=== PATIENT | female | born 2005 | race Caucasian/White ===

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

== ENCOUNTER 2025-07-16 19:45 | Emergency (ER) | payer BC, SELFPAY ==
--- OUTSIDE RECORDS SUMMARY | 2025-03-04 11:30 | XMS_ITS ---
Author Organization [facility] ([address]) Address [address] [place] [address] Care Team Providers Care Senior Loss Control Specialist Name Role Phone Sabiha Faria Primary Care Provider Sandra Frias Unavailable [phone] Angela Poe [phone] REASON FOR VISIT Hives follow-up Social History Sex Assigned At : Social History Observation Description Sex Assigned At Female Encounters Encounter Location Date Provider Diagnosis [facility] [address] [place] [address] 03/04/2025 Angela Poe Plan Of Treatment No Information Progress Notes * Emelia VENEGAS [birth year]OB:[birth year] (20 yo F)Acc No.[id number]:03/04/2025 Progress Notes Patient: El DIALLOEmelia HANSEN Provider: SHON Oliva :2005 A ge:20 Y S ex:Female Date:03/04/2025 [address] [id number] Pcp:Sabiha Faria Subjective: * Chief Complaints: * 1 . Hives follow-up. * Medical History: Objective: * Vitals: Assessment: Plan: * Treatment: * Billing Information: * Visit Code: * Procedure Codes: * Electronic signature of Angela Poe DNP, FNP-C on 07/16/2025 at 07:48 PM MEDICAL DONATION PROFESSIONAL Sign off status: Pending * Provider: El Poe DNP STAFFING ASSOCIATE-C Date: 0 03/04/2025 Generated for Osorio argueta/Vicky/Rupal on: 1 09/16/2024 07:48 PM MEDICAL DONATION PROFESSIONAL
--- NOTE | ~2025-07-16 | CT_ITS ---
CTA chest PE protocol HISTORY:cp/sob, COVID+, hx PE . COMPARISON: None. TECHNIQUE: Following the noncontrasted produce production team member, axial images of the thorax were obtained following infusion of 100 cc of Isovue 370. Post-processing on an independent workstation was performed to reconstruct MIP images for evaluation of the thoracic vasculature. FINDINGS: There is no pulmonary embolism, aortic dissection, thoracic aneurysm or pericardial fluid. The lung parenchyma is clear. No pleural effusion or pneumothorax is noted. There is no axillary, mediastinal or hilar adenopathy. Limited evaluation of the upper abdomen demonstrates no gross abnormalities. Review of bone windows demonstrates no osteoblastic or lytic lesions. IMPRESSION: There is no pulmonary embolism, aortic dissection, pericardial fluid or thoracic aneurysm. No acute lung findings. All CT scans at this facility are performed using low dose modulation techniques as appropriate to perform exam including the following: automated exposure control; use of iterative reconstruction technique; adjustment of the mA and/or kV according to patient size (this includes techniques or standardized protocols for targeted exams where dose is matched to indication/reason for exam). Reviewed, dictated and finalized at location [facility]. [employer] IMPRESSION: There is no pulmonary embolism, aortic dissection, pericardial fluid or thoraci c aneurysm. No acute lung findings. All CT scans at this facility are performed using low dose modulation techniqu es as appropriate to perform exam including the following: automated exposure c ontrol; use of iterative reconstruction technique; adjustment of the mA and/or kV according to patient size (this includes techniques or standardized protocol s for targeted exams where dose is matched to indication/reason for exam).
--- NOTE | ~2025-07-16 | XR_ITS ---
XR chest 2V HOSTORY: chest pain COMPARISON:[ None] FINDINGS: Frontal and lateral views of the chest were obtained. The lungs are clear. The heart size is normal in size. Pulmonary vasculature is unremarkable. Osseous structures are intact. IMPRESSION: No acute lung findings.] [ ] Reviewed, dictated and finalized at location S. [employer]
--- OUTSIDE RECORDS SUMMARY | 2025-07-16 19:48 | XMS_ITS | Encounter Summary ---
Author Organization [facility] Address [address] [place] [address] Care Team Providers Care Dicer Machine Operator Name Role Phone Wolfgang Snyder MD Primary Care Provider [phone] Encounter Details Date Type Department Care Team (Late st Contact Info) Description 04/24/2021 Lab Requisition [facility] Lab [address] [facility] [place] [id number] Marcelina Ritter MD [address] [facility] [address] [place] [address] Social History Tobacco Use Types Packs/Day Years Used Date Smoking Tobacco: Never Smokeless Tobacco: Never Alcohol Use Standard Drinks/Week Comments Never 0 (1 standard drink = 0.6 oz pur e alcohol) AUDIT-C Answer Date Recorded Frequency of Alcohol Consumption Never 04/18/2020 Average Number of Drinks Not on file 020 Frequency of Binge Drinking Not on file 04/01 Comments No Sex and Gender Information Value Date Recorded Sex Assigned at Not on file Legal Sex Female 9:28 PM [employer] Gender Identity Not on file Sexual Orientation Not on file COVID-19 Exposure Response Date Recorded In the last month, have you been in contact with someone who was confirmed or suspected to have Coronavirus / COVID-19? No / Unsure 04/23/2021 12:59 PM CDT documented as of this encounter Functional Status * Is person deaf or have serious hearing difficulty? Answer Date of Assessment Author No 01/25/2021 11:30 AM CDT Day, Ivan Mcguire RN * Is person blind or have serious difficulty seeing? Answer Date of Assessment Author No 01/25/2021 11:30 AM CDT Day, Ivan Mcguire RN * Does person have serious difficulty walking/climbing stairs? Answer Date of Assessment Author No 01/25/2021 11:30 AM CDT Day, Ivan Mcguire RN * Does person have difficulty dressing/bathing? Answer Date of Assessment Author No 01/25/2021 11:30 AM CDT Day, Ivan Mcguire RN * Does person have difficulty doing errands alone? Answer Date of Assessment Author No 01/25/2021 11:30 AM CDT Day, Ivan Mcguire RN documented as of this encounter Mental Status * Does person have difficulty concentrating/remembering/making decisions? Answer Entry Date Author No 01/25/2021 11:30 AM CDT Day, Ivan Mcguire RN documented in this encounter Plan of Treatment Not on file documented as of this encounter Procedures Procedure Name Priority Date/Time Associated Diagnosis Comments DERMATOPATHOLOGY Routine 04/23/2021 12:0 0 AM CDT documented in this encounter Results * DERMATOPATHOLOGY (04/23/2021 12:00 AM CDT) Case Report Dermatopathology Report Case: [id number] Authorizing Provider: Marcelina Ritter MD Collected: 04/23/2021 12:00 AM Ordering Location: [facility] D[facility] Lab Received: 04/24/2021 11:51 AM Pathologist: Vinita Dorsey MD Specimen: Skin, mid lower back 1 3:46 PM CDT DERMATOPATHOLOGY LABORATORY Final Diagnosis Specimen A. 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 The specimen consists of a punch biopsy measuring 7x7x9 mm, bisected. Jar 0. 1 3:46 PM CDT DERMATOPATHOLOGY LABORATORY Microscopic Description Specimen A. SKIN, mid lower back: This is a compound nevus. There is melanin pigment in the stratum corneum. There is architectural disorder characterized by a lentiginous proliferation of melanocytes between irregular nevus nests of cells along the dermal epidermal junction. There is underlying fibroplasia of the papillary dermis. The intradermal component is bland in appearance and matures with depth. (Compound Santo's Nevus or Compound Dysplastic Nevus) 1 3:46 PM CDT DERMATOPATHOLOGY LABORATORY Disclaimer An external and internal positive and negative controls are appropriate for the histochemical, immunohistochemical and immunofluorescence stain(s) in this case (if any), except where stated explicitly. The performance characteristics of the stain(s) cited in this report were developed and its performance characteristic determined by the Dermatopathology Laboratory at [facility], directed by Dr. Briana Dutton. These tests need not be, and therefore are not, approved by the [place] Food and Drug Administration. The tests are used for clinical purposes. Billing Codes Specimen Charges Stain Charges 59037 1 1 3:46 PM CDT DERMATOPATHOLOGY LABORATORY Embedded Images 1 3:46 PM CDT DERMATOPATHOLOGY LABORATORY Pathology/Cytolog y TISSUE SPECIMEN FROM SKIN / Unknown 04/23/2021 04/24/2021 11:51 AM CDT Marcelina Ritter MD LAB - PATHOLOGY/CYTOLOGY O RDERABLES Final Result DERMATOPATHOLOGY LABORATORY [facility] - Department of Dermatology [facility] Medicine [address] [place] [address], [address] [phone] documented in this encounter Visit Diagnoses Not on filedocumented in this encounter Care Teams Dicer Machine Operator Relationship Specialty Start Date End Date Wolfgang Snyder MD [address] [place] [address] [phone] PCP - General Pediatrics 09/01/17 documented as of this encounter
--- OUTSIDE RECORDS SUMMARY | 2025-07-16 19:48 | XMS_ITS | Patient Health Record ---
Author Organization Count Includes [facility] [employer] [facility] [place] ([address]) Address [address] [place] [address] Care Team Providers Care Senior Graphic Designer Name Role Phone Sabiha Faria Primary Care Provider Sandra Frias Unavailable [phone] DinorahAngela mazariegos Unavailable [phone] Allergies No Known Allergies Results Component Value Reference Range Notes -Chronic Urticaria -- Anti-I gE ([id number]) Reviewed date:10/15/2024 11:36:31 AM Interpretation:Normal Performing Lab:[facility], [address] [place] [id number], Phone - [phone], Director - Dannie Notes/Report: Anti-IgE* Normal Normal This JOHANNA measures IgG antibodies specific for IgE. A result of normal indicates that the level of IgG anti-IgE antibodies is similar to that seen in a population of healthy individuals. A result of elevated indicates an increased level of IgG anti-IgE antibodies compared to healthy individuals. These autoantibodies have been implicated as a causative agent in autoimmune chronic urticaria and atopic dermatitis. FLAG Interpretation: A = Abnormal, H = High, L = Low -Tryptase ([id number]) Reviewed date:10/08/2024 01:11:50 PM Interpretation:Normal Performing Lab:[facility] [id number], Phone - [phone], Director - Naldo Notes/Report: Tryptase 3.5 2.2-13.2 ug/L -CU Panel ([id number]) Reviewed date:10/16/2024 09:19:07 PM Interpretation:Abnormal [facility]forming [facility], [address] [place] [id number], Phone - [phone], Director - Edgardo Notes/Report: Glucose 89 70-99 mg/dL BUN 10 6-20 mg/dL Creatinine 0.76 0.57-1.00 mg/dL eGFR 115 >59 mL/min/1.73 BUN/Creatinine Ratio 13 9-23 Sodium 139 134-144 mmol/L Potassium 4.2 3.5-5.2 mmol/L Chloride 103 96-106 mmol/L Carbon Dioxide, Total 19 20-29 mmol/L Calcium 10.0 8.7-10.2 mg/dL Protein, Total 7.9 6.0-8.5 g/dL Albumin 5.1 4.0-5.0 g/dL Globulin, Total 2.8 1.5-4.5 g/dL Bilirubin, Total 0.3 0.0-1.2 mg/dL Alkaline Phosphatase 86 42-106 IU/L AST (SGOT) 22 0-40 IU/L ALT (SGPT) 17 0-32 IU/L Immunoglobulin A, Qn, Serum 118 87-352 mg/dL Immunoglobulin E, Total 150 6-495 IU/mL TSH 0.977 0.450-4.500 uIU/mL RAD Direct Negative Negative Rheumatoid Factor (RF) <10.0 <14.0 IU/mL Thyroid Peroxidase (TPO) Ab 15 0-34 IU/mL Thyroglobulin Antibody <1.0 0.0-0.9 IU/mL Thyroglobulin Antibody measured by [facility] [employer] . It should be noted that the presence of thyroglobulin antibodies may not be pathogenic nor diagnostic, especially at very low levels. The assay metal tube cutter has found that four percent of individuals without evidence of thyroid disease or autoimmunity will have positive TgAb levels up to 4 IU/mL. Deamidated Gliadin Abs, IgA 2 0-19 units Negative 0 - 19 Weak Positive 20 - 30 Moderate to Strong Positive >30 Deamidated Gliadin Abs, IgG 1 0-19 units Negative 0 - 19 Weak Positive 20 - 30 Moderate to Strong Positive >30 t-Transglutaminase (tTG) IgA <2 0-3 U/mL Negative 0 - 3 Weak Positive 4 - 10 Positive >10 . Tissue Transglutaminase (tTG) has been identified as the endomysial antigen. Studies have demonstr- ated that endomysial IgA antibodies have over 99% specificity for gluten sensitive enteropathy. t-Transglutaminase (tTG) IgG 3 0-5 U/mL Negative 0 - 5 Weak Positive 6 - 9 Positive >9 Endomysial Antibody IgA Negative Negative WBC 8.3 3.4-10.8 x10E3/uL RBC 4.67 3.77-5.28 x10E6/uL Hemoglobin 14.0 11.1-15.9 g/dL Hematocrit 42.5 34.0-46.6 % MCV 91 79-97 fL MCH 30.0 26.6-33.0 pg MCHC 32.9 31.5-35.7 g/dL RDW 11.9 11.7-15.4 % Platelets 425 150-450 x10E3/uL Neutrophils 60 Not Estab. % Lymphs 33 Not Estab. % Monocytes 5 Not Estab. % Eos 1 Not Estab. % Basos 1 Not Estab. % Neutrophils (Absolute) 5.0 1.4-7.0 x10E3/uL Lymphs (Absolute) 2.7 0.7-3.1 x10E3/uL Monocytes(Absolute) 0.4 0.1-0.9 x10E3/uL Eos (Absolute) 0.1 0.0-0.4 x10E3/uL Baso (Absolute) 0.1 0.0-0.2 x10E3/uL Immature Granulocytes 0 Not Estab. % Immature Grans (Abs) 0.0 0.0-0.1 x10E3/uL Sedimentation Rate-[place] 3 0-32 mm/hr Specific [place] 1.024 1.005-1.030 pH 5.5 5.0-7.5 Urine-Color Yellow Yellow Appearance Clear Clear WBC Esterase Negative Negative Protein Negative Negative/Trace Glucose Negative Negative Ketones Trace Negative Occult Blood Negative Negative Bilirubin Negative Negative Urobilinogen,Semi-Qn 0.2 0.2-1.0 mg/dL Nitrite, Urine Negative Negative Microscopic Examination Micr oscopic follows if indicated. Microscopic Examination See below: Micr oscopic was indicated and was performed. WBC None seen 0 - 5 /hpf RBC None seen 0 - 2 /hpf Epithelial Cells (non renal) 0-10 0 - 10 /hpf Casts None seen None seen /lpf Bacteria None seen None seen/Few -Chronic Urticaria -- Autoim mune IgE receptor antibody ([id number]) Reviewed date:10/15/2024 11:36:45 AM Interpretation:Normal Performing Lab:[facility], [address], [address] [id number], Phone - [phone], Director - Dannie Notes/Report: cu index 1.2 <10 The CU Index(R) test is the second generation Functional Anti-FceR test. Patients with a CU Index(R) greater than or equal to 10 have basophil reactive factors in their serum which supports an autoimmune basis for disease. *This test was developed and its performance characteristics determined by [facility]. It has not been cleared or approved by the U.S. Food and Drug Administration. FLAG Interpretation: A = Abnormal, H = High, L = Low -Respiratory Allergens w/Tot al IgE Area 8 Reviewed date:10/15/2024 11:37:26 AM Interpretation:Abnormal Performing Lab:[facility], [address] [place] [id number], Phone - [phone], Director - Naldo Notes/Report: Class Description Levels of Specific IgE Class Description of Class ----- < 0.10 0 Negative 0.10 - 0.31 0/I Equivocal/Low 0.32 - 0.55 I Low 0.56 - 1.40 II Moderate 1.41 - 3.90 III High 3.91 - 19.00 IV Very High 19.01 - 100.00 V Very High >100.00 Very High I560-QwC D pteronyssinus <0.10 Class 0 kU/L B740-CnO D farinae <0.10 Class 0 kU/L A707-YwL Cat Dander <0.10 Class 0 kU/L U916-HyY Dog Dander <0.10 Class 0 kU/L P938-YlQ Mouse Urine <0.10 Class 0 kU/L O879-SmF [place] Grass <0.10 Class 0 kU/L F482-KuO [place] Grass <0.10 Class 0 kU/L V368-FmZ Cockroach, Nepali <0.10 Class 0 kU/L K544-VoD Penicillium chrysogen <0.10 Class 0 kU/L Z121-SvB Cladosporium herbarum <0.10 Class 0 kU/L Q369-AvY Aspergillus fumigatus <0.10 Class 0 kU/L V958-VbB Alternaria alternata <0.10 Class 0 kU/L F098-LeW Maple/[place] <0.10 Class 0 kU/L A174-WvY [place], Mountain 0.11 Class 0/I kU/L V013-RwQ [place], White <0.10 Class 0 kU/L Z840-PjR Elm, [place] Islander <0.10 Class 0 kU/L Y773-DpI [place] <0.10 Class 0 kU/L R343-TmB Maple [place] <0.10 Class 0 kU/L Q632-PmU [place] 0.32 Class I kU/L R302-AtM Caesar, White <0.10 Class 0 kU/L Q913-LuA Pecan, [place] <0.10 Class 0 kU/L X259-BkL White [place] <0.10 Class 0 kU/L N572-BjB Ragweed, Short 81.10 Class V kU/L I099-PzE Thistle, Bulgarian <0.10 Class 0 kU/L Z454-GcU Pigweed, Common <0.10 Class 0 kU/L L705-DyE Rough [place]er 3.04 Class III kU/L ANCA Profile-[id number] Reviewed date:10/09/2024 07:33:36 AM Interpretation:Normal Performing Lab:[facility], [address] [place] [id number], Phone - [phone], Director - Naldo Notes/Report: Anti-MPO Antibodies <0.2 0.0-0.9 units Anti-PR3 Antibodies <0.2 0.0-0.9 units Cytoplasmic (C-ANCA) <1:20 Neg:<1:20 titer Perinuclear (P-ANCA) <1:20 Neg:<1:20 titer The presence of positive fluorescence exhibiting P-ANCA or C-ANCA patterns alone is not specific for the diagnosis of Stevan's Granulomatosis (WG) or microscopic polyangiitis. Decisions about treatment should not be based solely on ANCA IFA results. The International ANCA Group Consensus recommends follow up testing of positive sera with both SC-3 and MPO-ANCA enzyme immunoassays. As many as 5% serum samples are positive only by EIA. Ref. AM J Clin Pathol 1999;111:507-513. Atypical pANCA <1:20 Neg:<1:20 titer The atypical pANCA pattern has been observed in a significant percentage of patients with ulcerative colitis, primary sclerosing cholangitis and autoimmune hepatitis. Reason For Referral No Information Medications Medication SIG (Take, Route, Frequency, Duration) Notes Start Date End Date Status Cetirizine HCl 10 MG 1 tablet Orally Twi ce a day; Duration: 30 days Active EPINEPHrine 0.3 MG/0.3ML as directed Injection Active Famotidine 40 MG 1 tablet Orally Twic e a day; Duration: 30 days Active Montelukast Sodium 10 MG 1 tablet Orally Once a day at night; Duration: 90 days Acti ve Social History Tobacco Use: Social History Observation Description Date Details (start date - stop date) Former Smoker NA - NA Sex Assigned At : Social History Observation Description Sex Assigned At Female Tobacco Control (Standard) Question Answer Notes Tobacco use: Former smoker AUDIT-C (Standard) Question Answer Notes Did you have a drink contain ing alcohol in the past year? Yes How often did you have a dri nk containing alcohol in the past year? Monthly or less (1 point) How many drinks did you have on a typical day when you were drinking in the past year? 1 or 2 drinks (0 point) How often did you have six o r more drinks on one occasion in the past year? Less than monthly (1 point) Points 2 Interpretation Negative Problems Problem Type SNOMED Code ICD Code Onset Dates Problem Status W/U Status Risk Notes Problem Allergic rhinitis caused by pollen (disorder) (00199242) Allergic rhinitis due to pollen (J30.1) Active confirmed Problem Chronic rhinitis (12545901) Chronic rhinitis (J31.0) Active confirmed Problem Hypertrophy of nasal turbinates (75806083) Hypertrophy of nasal turbinates (J34.3) Active confirmed Problem Urticaria (424018717) Other urticaria (L50.8) Active confirmed Problem Postural orthostatic tachycardia syndrome (disorder) (493768955) Postural orthostatic tachycardia syndrome [POTS] (G90.A) Active confirmed Vital Signs Blood pressure diastolic 89 mm Hg 01/07/2025 Rep eat HR 98 Oximetry 99 % 01/07/2025 Repeat HR 98 Height 65 in 01/07/2025 Repeat HR 98 Blood pressure systolic 130 mm Hg 01/07/2025 Repe at HR 98 Weight 132.2 lbs 01/07/2025 Repeat HR 98 BMI 22 kg/m2 01/07/2025 Repeat HR 98 Encounters Encounter Location Date Provider Diagnosis [facility] [address] [place] [phone] 01/07/2025 Angela Poe Other urticaria L50. 8 ; Rash and other nonspecific skin eruption R21 ; Angioneurotic edema, initial encounter T78.3XXA ; Dermatographic urticaria L50.3 ; Allergic rhinitis due to pollen J30.1 and Elevated blood-pressure reading, without diagnosis of hypertension R03.0 [facility] [address] [place] [phone] 10/31/2024 Sandra Lee Other urticaria L50. 8 ; Rash and other nonspecific skin eruption R21 ; Angioneurotic edema, initial encounter T78.3XXA ; Dermatographic urticaria L50.3 ; Allergic rhinitis due to pollen J30.1 and Elevated blood-pressure reading, without diagnosis of hypertension R03.[address] [phone] 10/03/2024 Sandra Lee Other urticaria L50. 8 ; Rash and other nonspecific skin eruption R21 ; Angioneurotic edema, initial encounter T78.3XXA ; Dermatographic urticaria L50.3 ; Hypertrophy of nasal turbinates J34.3 ; Chronic rhinitis J31.0 and Elevated blood-pressure reading, without diagnosis of hypertension R03.0 [facility] [address] [place] [address] 01/07/2025 Sandra Lee [facility] [address] [place] [address] 12/18/2024 Sandra Lee Other urticaria L50. 8 Assessments Encounter Date Diagnosis (ICD Code) Assessment Notes Treatment Notes Treatment Clinical Notes Section Notes 10/03/2024 Other urticaria (ICD-10 - L50.8) Hives will be present for 1-2 hours then will fade, but intensely burn. She will then develop bruises the next day that make her legs so achy for several hours after. She also feels she has aching joints in legs. Bruising will last for days to weeks. Bruising mainly occurs on her legs and will often show up without hives. She reports hives on arms and chest, but denies bruising. Her legs will develop hives and bruising. Symptoms are occuring twice per day on most days. She has attempted Benadryl and Zyrtec with minimal improvement. She has attempted cold showers without improvement. She denies dermatology evaluation. She was given hydroxyzine by her PCP with no improvement. She denies interval swelling. Current products consist of Gain laundry detergent, will use fragrance free on bedding, dryer sheets, [place] Shampoo, Fragrance free head and shoulders body wash, Aveeno cocoa butter or Jergen's lotion. She reports allergy to lavender oil, will cause rash so actively avoids. She reports frequent use of ibuprofen a couple times a week for headache, drinks alcohol socially, denies opioid use. Skin clear on exam today. - History, presentation, pictures, and timeframe of symptoms > 6 weeks c/w chronic idiopathic urticaria. In response, plan on 4x FDA approved dosing of antihistamines for > 4 weeks. Will trial Zyrtec 10mg BID, Pepcid 20mg BID and SIngulair 10mg PM. Orders sent out. - If breakthrough continues despite this treatment, consider Xolair - Laboratory workup ordered for further evaluation of autoimmune versus, mast cell conditions, thyroid disorders, etc. - Encouraged to journal and take pictures. - Education on chronic urticaria provided. - Encouraged to avoid products with fragrances, dyes and preservatives. Recommended Vanicream Line - samples given. - Recommend avoiding NSAIDs, opioids and alcohol as these can exacerbate symptoms. - Recommend evaluation with [facility] for concerns for vasculitis given ongoing brusing in association with hives. - Follow-up in 1month for E&M, laboratory review. 10/03/2024 Rash and other nonspecific skin eruption (ICD-10 - R21) As stated above. Recommend dermatology evaluation for biopsy. 10/31/2024 Other urticaria (ICD-10 - L50.8) Hives will be present for 1-2 hours then will fade, but intensely burn. She will then develop bruises the next day that make her legs so achy for several hours after. She also feels she has aching joints in legs. Bruising will last for days to weeks. Bruising mainly occurs on her legs and will often show up without hives. She reports hives on arms and chest, but denies bruising. Her legs will develop hives and bruising. Symptoms are occuring twice per day on most days. She has attempted Benadryl and Zyrtec with minimal improvement. She has attempted cold showers without improvement. She denies dermatology evaluation. She was given hydroxyzine by her PCP with no improvement. She denies interval swelling. Current products consist of Gain laundry detergent, will use fragrance free on bedding, dryer sheets, [place] Shampoo, Fragrance free head and shoulders body wash, Aveeno cocoa butter or Jergen's lotion. She reports allergy to lavender oil, will cause rash so actively avoids. She reports frequent use of ibuprofen a couple times a week for headache, drinks alcohol socially, denies opioid use. Skin clear on exam today. Triple therapy was recommended, but patient reports only daily dosing of Zyrtec and Pepcid in addition to nightly Singulair. Symptoms have improved, but occurring only once per day. - History, presentation, pictures, and timeframe of symptoms > 6 weeks c/w chronic idiopathic urticaria. In response, plan on 4x FDA approved dosing of antihistamines for > 4 weeks. - Will increase to Zyrtec 10mg BID, Pepcid 20mg BID and continue Singulair 10mg PM. Refills sent for Singulair. - If breakthrough continues despite this treatment, consider Xolair. - Laboratory workup ordered for further evaluation of autoimmune versus, mast cell conditions, thyroid disorders, etc. Essentially normal. Mild decrease in total carbon dioxide (19), mild increase in albumin (5.1), trace ketones in urine. Lab results printed and given to patient. She will discuss subtle abnormalities with PCP. Results forwarded. - Encouraged to journal and take pictures. - Education on chronic urticaria provided at initial visit. - Encouraged to avoid products with fragrances, dyes and preservatives. Recommended Vanicream Line. - Recommend avoiding NSAIDs, opioids and alcohol as these can exacerbate symptoms. - Recommend evaluation with [facility] for concerns for vasculitis given ongoing brusing in association with hives. Slated for evaluation in 11/27/24. Negative ANCA. - Follow-up in 2 months for E&M 10/31/2024 Rash and other nonspecific skin eruption (ICD-10 - R21) As stated above. Recommend dermatology evaluation for biopsy, slated for evaluation on 11/27/24. 12/18/2024 Other urticaria (ICD-10 - L50.8) 01/07/2025 Other urticaria (ICD-10 - L50.8) Hives will be present for 1-2 hours then will fade, but intensely burn. She will then develop bruises the next day that make her legs so achy for several hours after. She also feels she has aching joints in legs. Bruising will last for days to weeks. Bruising mainly occurs on her legs and will often show up without hives. She reports hives on arms and chest, but denies bruising. Her legs will develop hives and bruising. Symptoms are occurring twice per day on most days. She has attempted Benadryl and Zyrtec with minimal improvement. She has attempted cold showers without improvement. She denies dermatology evaluation. She was given hydroxyzine by her PCP with no improvement. She denies interval swelling. Current products consist of Gain laundry detergent, will use fragrance free on bedding, dryer sheets, [place] Shampoo, Fragrance free head and shoulders body wash, Aveeno cocoa butter or Jergen's lotion. She reports allergy to lavender oil, will cause rash so actively avoids. She reports frequent use of ibuprofen a couple times a week for headache, drinks alcohol socially, denies opioid use. Skin clear on exam today. Triple therapy was recommended, but patient reports only daily dosing of Zyrtec and Pepcid in addition to nightly Singulair. Symptoms have improved, but occurring only once per day. - History, presentation, pictures, and timeframe of symptoms > 6 weeks c/w chronic idiopathic urticaria. - Will continue to Zyrtec 10 mg BID, increase Pepcid to 40m g BID and continue Singulair 10mg PM. - If breakthrough continues despite this treatment, consider Xolair, which we thoroughly discussed today. Educational pamphlet provided/ - Laboratory workup ordered for further evaluation of autoimmune versus, mast cell conditions, thyroid disorders, etc. Essentially normal. Mild decrease in total carbon dioxide (19), mild increase in albumin (5.1), trace ketones in urine. Lab results printed and given to patient. She will discuss subtle abnormalities with PCP. Results forwarded. - Encouraged to journal and take updated pictures. - Education on chronic urticaria provided at initial visit. - Encouraged to avoid products with fragrances, dyes and preservatives. Recommended Vanicream Line. - Recommend avoiding NSAIDs, opioids and alcohol as these can exacerbate symptoms. - Emelia has now been evaluated with [facility] for concerns for vasculitis given ongoing brusing in association with hives. They also voiced concerns for vasculitis, though biopsy not taken as her skin was clear at her first visit. Emelia would like to obtain and biopsy prior to starting trial of XOLAIR. TE created in an effort to get Emelia in for a biopsy sooner. Negative ANCA. - Follow-up in 2 months for E&M 01/07/2025 Rash and other nonspecific skin eruption (ICD-10 - R21) As stated above. Recommend dermatology evaluation for biopsy. 01/07/2025 Angioneurotic edema, initial encounter (ICD-10 - T78.3XXA) Emelia was given AIE after hives developed with associated eye swelling in 2018. She reports given epinephrine x 2 with no improvement. At the time this occurred, Emelia had been outside during peak pollne season. She reports it is not unusual for eyes to swell during peak seasons. She denies interval episodes of swelling and this has not occurred since. She denies associated IgE-mediated symptoms. She enjoys hiking and being outdoors so she does carry AIE with her. - Continue to carry AIE at all times. Notify office for reoccurence. 10/31/2024 Angioneurotic edema, initial encounter (ICD-10 - T78.3XXA) Emelia was given AIE after hives developed with associated eye swelling in 2018. She reports given epinephrine x 2 with no improvement. At the time this occurred, Emelia had been outside during peak pollne season. She reports it is not unusual for eyes to swell during peak seasons. She denies interval episodes of swelling and this has not occurred since. She denies associated IgE-mediated symptoms. She enjoys hiking and being outdoors so she does carry AIE with her. - Continue to carry AIE at all times. Notify office for reoccurence. 10/03/2024 Angioneurotic edema, initial encounter (ICD-10 - T78.3XXA) Emelia was given AIE after hives developed with associated eye swelling in 2018. She reports given epinephrine x 2 with no improvement. At the time this occurred, Emelia had been outside during peak pollne season. She reports it is not unusual for eyes to swell during peak seasons. She denies interval episodes of swelling and this has not occurred since. She denies associated IgE-mediated symptoms. She enjoys hiking and being outdoors so she does carry AIE with her. - Continue to carry AIE at all times. Notify office for reoccurence. 10/03/2024 Dermatographic urticaria (ICD-10 - L50.3) Skin testing was performed to histamine and negative control that resulted in a 7 mm wheal/10mm flare consistent with dermatographism so further skin testing could not per reliably performed. - Treat CIU as stated above. 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 - Treat CIU as stated above. 01/07/2025 Dermatographic urticaria (ICD-10 - L50.3) Skin testing was performed to histamine and negative control at initial visit that resulted in a 7 mm wheal/10mm flare consistent with dermatographism so further skin testing could not per reliably performed. - Treat CIU as stated above. 01/07/2025 Allergic rhinitis due to pollen (ICD-10 - J30.1) Emelia reports ongoing rhinorrhea, itchy/watery eyes, sneezing. Current treatment consists of Zyrtec daily. She reports prior allergy testing at [facility] confirming positives to trees, grasses, dogs, cats, rabbit. She has never received allergy immunotherapy. She currently has two dogs, one guinea pig and one rabbit in the home. - Skin testing was performed to histamine and negative control at initial visit that resulted in a 7 mm wheal/10mm flare consistent with dermatographism so further skin testing could not per reliably performed. - ImmunoCaps to be ordered to rule out underlying atopic disease, showing IgE elevations to tree, weeds. Total IgE 150. - Recommend aeroallergen skin testing in future when hives are stable. Would need skin testing to guinea pig and rabbit as well. 10/31/2024 Allergic rhinitis due to pollen (ICD-10 - J30.1) Aerial reports ongoing rhinorrhea, itchy/watery eyes, sneezing. Current treatment consists of Zyrtec daily. She reports prior allergy testing at [facility] confirming positives to trees, grasses, dogs, cats, rabbit. She has never received allergy immunotherapy. She currently has two dogs, one guinea pig and one rabbit in the home. - Skin testing was performed to histamine and negative control at initial visit that resulted in a 7 mm wheal/10mm flare consistent with dermatographism so further skin testing could not per reliably performed. - ImmunoCaps to be ordered to rule out underlying atopic disease, showing IgE elevations to tree, weeds. Total IgE 150. - Recommend aeroallergen skin testing in future when hives are stable. Would need skin testing to guinea pig and rabbit as well. 10/03/2024 Hypertrophy of nasal turbinates (ICD-10 - J34.3) Aerial reports ongoing rhinorrhea, itchy/watery eyes, sneezing. Current treatment consists of Zyrtec daily. She reports prior allergy testing at [facility] confirming positives to trees, grasses, dogs, cats, rabbit. She has never received allergy immunotherapy. She currently has two dogs, one guinea pig and one rabbit in the home. 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 - ImmunoCaps to be ordered to rule out underlying atopic disease. 10/03/2024 Chronic rhinitis (ICD-10 - J31.0) As stated above. 01/07/2025 Elevated blood-pressure reading, without diagnosis of hypertension (ICD-10 - R03.0) BP elevated today without symptoms of urgency or emergency. Continue serial checks and follow-up with PCP 10/31/2024 Elevated blood-pressure reading, without diagnosis of hypertension (ICD-10 - R03.0) BP elevated today without symptoms of urgency or emergency. Continue serial checks and follow-up with PCP 10/03/2024 Elevated blood-pressure reading, without diagnosis of hypertension (ICD-10 - R03.0) BP elevated today without symptoms of urgency or emergency. Continue serial checks and follow-up with PCP 10/03/2024 Other 10/31/2024 Other 01/07/2025 Other Plan Of Treatment Pending Test Test Name Order Date -ANCA PANEL 10/03/2024 Insurance Providers Payer Name Payer Address Payer Phone Subscriber Number Group Number Insured Name Patient Relationship to Insured Coverage Start Date Coverage End Date [facility] [address] [place] [address] [id number] Fernando lopez Child - Insured has Financial Responsibility 5 Medical (General) History Medical History History ICD Code Postural orthostatic tachycardia syndrom e [POTS] G90.A Hospitalization History Reason Date(Month/Year) blood clots 2020
--- OUTSIDE RECORDS SUMMARY | 2025-07-16 19:48 | XMS_ITS | Clinical Summary ---
Author Organization [facility] Address [address] [place] [address] Care Team Providers Care Gericare Aide Teacher Name Role Phone Sabiha Faria MD Primary Care Provider + Allergies Active Allergy Reactions Criticality Noted Date Comments Lavender Oil Hives Medium 05/02/2020 Medications cetirizine (ZYRTEC) 10 MG tablet Take 1 tablet (10 mg total) by mouth daily. Active Active Problems Problem Noted Date Diagnosed Date Mixed anxiety and depressive disorder 08/09/2022 Postural orthostatic tachycardia syndrome 2022 Overview (09/12/2024): Syncopal episodes in high school. Significant changes in BP when sitting vs laying. Saw cardiology and diagnosed as POTS. Now heart flutters periodically. No further syncopal. Dysfunctional uterine bleeding 04/07/2021 Overview (09/12/2024): Heavy menstrual cycles. Was on depo and now not on anything. History of pulmonary embolus (PE) 01/25/2021 Overview (09/12/2024): Completed course of anticoagulation. Despite multiple tests she only was noted to have elevated antiphospholipid antibodies and her oral contraceptive may have contributed. Allergic rhinoconjunctivitis 09/12/2019 Overview (09/12/2024): 09/12/2019: Allergy SPT: + to dog, cat, trees, grass, ragweed and other weeds. (has exposure to guinea pig and rabbit which were not tested). Immunizations Immunization Administration Dates Next Due Dtap (Acel-Immune) 03/20/2009, 5,02/11/2005,06/06,2004 HPV GARDASIL 9-VALENT 03/24/2020,11/23/2019,09/02 Hib-Hepatitis B (Comvax) 02/11/2005,2004,0 2004 Influenza (FluMist) 05/07/2014 Influenza (Generic) 04/15/2009,05/23/2008 Influenza Adult (Generic) 09/24/2020,07/2020,07/12/2016,06/03,08/14/2013 MMR (MMRII) 03/20/2009,02/11/2005 Meningcoccal Group B (Bexser o)(aka Meningitis) 09/24/2020,03/24/2020 Meningococcal (Menactra) 03/24/2020,03/26/2015 Pneumococcal (Prevnar 7) 08/12/2005,05/01,2004,04/16 Polio IPV (Ipol) 03/20/2009, 5,2004,04/16 Tdap (Adacel) 09/12/2024 Tdap (Generic) 03/26/2015 Varicella (Varivax) 03/20/2009,05/13/2005 Family History Medical History Relation Comments No Known Problems Brother 1 Asthma Brother 2 Substance Abuse Father estanged Cancer Maternal Aunt Ovarian cancer Hypertension Maternal Grandfather Hypertension Maternal Uncle Stroke Maternal Uncle Depression Mother Relation Status Comments Brother 1 Alive Brother 2 Alive Father Alive Maternal Aunt Maternal Grandfather Maternal Uncle Mother Alive Social History Tobacco Use Types Packs/Day Years Used Date Smoking Tobacco: Never Passive Smoke Exposure: Past Smokeless Tobacco: Never Tobacco Cessation:Counseling Given: No Comments:Tried it in high school Alcohol Use Standard Drinks/Week Comments Never 0 (1 standard drink = 0.6 oz pur e alcohol) PHQ-2 Answer Date Recorded Patient Health Questionnaire-2 Score 0 09/12/2024 Comments Unknown Sex and Gender Information Value Date Recorded Sex Assigned at Not on file Legal Sex Female 2:17 PM HOSTESS CASHIER Gender Identity Not on file Sexual Orientation Not on file Last Filed Vital Signs Vital Sign Reading Time Taken Comments Blood Pressure 130/80 09/12/2024 11:22 AM HOSTESS CASHIER Pulse 117 09/12/2024 11:15 AM HOSTESS CASHIER Temperature 37.7 C (99.8 F) 09/12/2024 11:15 AM HOSTESS CASHIER Respiratory Rate - - Oxygen Saturation 99% 09/12/2024 11:15 AM HOSTESS CASHIER Inhaled Oxygen Concentration - - Weight 59.1 kg (130 lb 6.4 oz) 09/12/2024 11:15 AM HOSTESS CASHIER Height 165.1 cm (5' 5) 09/12/2024 11:15 AM HOSTESS CASHIER Body Mass Index 21.7 09/12/2024 11:15 AM HOSTESS CASHIER Plan of Treatment Health Maintenance Due Date Last Done Comments Hepatitis C 02/08/2022 Chlamydia Screening Females ages 16-24 02/03/2023 02/03/2022 Cervical Cancer Screening Pap Smear (Age 21 to 29) Every 3 Years 02/03/2025 02/03/2022 Cervical Cancer Screening 02/03/2025 COVID-19 Vaccine ( season) 2025 04/08/2021, 03/16/2021 Influenza Adult (#1) 2025 09/24/2020, 09/12/2019, 07/12/2016, Additional history exists Annual Physical 09/12/2025 09/12/2024 DTaP, Tdap and Td Vaccines (7 - Td or Tdap) 09/12/2034 09/12/2024, 03/26/2015, 03/20/2009, Additional history exists Hepatitis B Vaccines Completed 02/11/2005, 2004, 2004 Pneumococcal Vaccine: Pediatrics (0 to 5 Years) and At-Risk Patients (6 to 49 Years) Aged Out 08/12/2005, 05/13/2005, 2004, Additional history exists No longer eligible based on patient's age to complete this topic HPV Vaccines Completed 03/24/2020, 10/31, 09/24/2019 Meningococcal Vaccine Completed 03/24/2020, 015 Meningococcal B Vaccine Completed 09/24/2020, 03/24 PHQ-2 (Physician [place]) Completed 09/12/2024 Hepatitis A Vaccines Aged Out No long er eligible based on patient's age to complete this topic RSV Immunizations Under 20 Months Aged Out No longer eligible based on patient's age to complete this topic Insurance [facility] MEDICAID Care Teams Gericare Aide Teacher Relationship Specialty Start Date End Date Sabiha Faria MD [address] [place] [id number] PCP - General FAMILY PRACTICE 09/12/24
--- NOTE | 2025-07-16 19:51 | ECG_ITS ---
Test Date: 2025-07-16 20:12:07 Measurements Intervals [place] Rate: 97 P: 70 CT: 131 QRS: 91 QRSD: 95 T: 56 QT: 326 QTc: 416 Interpretive Statements SINUS RHYTHM WITH SINUS ARRHYTHMIA RIGHT AXIS DEVIATION INCOMPLETE RIGHT BUNDLE BRANCH BLOCK BORDERLINE ST-T WAVE ABNORMALITY- INFERIOR LEADS BASELINE ARTIFACT- I, II, III, AVR, AVL BORDERLINE ECG No previous ECG available for comparison Electronically Signed On 07-16-2025 20:44:08 RECORD MAKER by Saleem Argueta D.O.
[2025-07-16 20:15] LABS: Hematocrit 40.2 % (37.0-47.0); Hemoglobin 13.7 g/dL (12.0-15.0); Immature Granulocyte Percent A 0.1 % (0-0.5); Lymphocytes Absolute Auto 1.75 K/mm3 (0.9-3.2); Mean Corpuscular HGB Conc 34.1 g/dl (32-36); Mean Corpuscular Hemoglobin 30.0 pg (26-34); Mean Corpuscular Volume 88.0 fl (80-100); Nucleated Red Blood Cells Absolute Auto 0.000 K/mm3 (0.0-0.012); Nucleated Red Blood Cells Perc 0.0 % (0.0-0.2); Platelet Count Result 287 k/mm3 (150-375); Red Blood Count 4.57 M/mm3 (4.2-5.4); White Blood Count 6.9 K/mm3 (4.5-10.0)
[2025-07-16 20:28] LABS: Alanine Aminotransferase 21 U/L (6-35); Albumin Level 5.0 g/dL (3.5-5.1); Alkaline Phosphatase 64 U/L (38-126); Anion Gap 11 mmol/L (4-12); Aspartate Amino Transferase 26 U/L (14-36); Bilirubin,Total 0.4 mg/dL (0.2-1.3); Blood Urea Nitrogen 12 mg/dL (7-17); Calcium 9.5 mg/dL (8.4-10.2); Carbon Dioxide 23 mmol/L (22-30); Chloride 106 mmol/L (98-107); Estimated CRCL calculation 81 ml/min; Estimated Glomerular Filt Rate > 60; Glucose 108 mg/dL (65-110); Lipase 63 U/L (23-300); Potassium 3.7 mmol/L (3.4-5.0); Sodium 140 mmol/L (137-145); Total Protein 8.4 g/dL (6.3-8.2)
[2025-07-16 20:33] LABS: INR 1.0; Partial Thromboplastin Time 30.6 Seconds (22.3-36.8); Prothrombin Time 13.8 Seconds (11.1-14.7)
[2025-07-16 20:37] LABS: Troponin I < 0.012 ng/mL (0.000-0.034)
[2025-07-16 21:05] VITALS: BP 113/81; PULSE 105; PULSE 106; RESP 18; O2SAT 100
--- OUTSIDE RECORDS SUMMARY | 2025-07-16 21:07 | XMS_ITS | Encounter Summary ---
Author Organization [facility] Address [address] [place] [address] Care Team Providers Care Fax Machine Repairer Name Role Phone Wolfgang Snyder MD Primary Care Provider [phone] Encounter Details Date Type Department Care Team (Late st Contact Info) Description 04/24/2021 Lab Requisition [facility] Care DermPath Lab [address] [facility] [facility] [place] [id number] Marcelina Ritter MD [address] [facility] [address] [place] [address] Social History Tobacco Use Types Packs/Day Years [...] on file Legal Sex Female 9:28 PM TRANSPORTATION TECHNICIAN Gender Identity Not on file Sexual Orientation [...] No 01/25/2021 11:30 AM CDT Day, Ivan Mcgiure RN documented in this encounter Plan of Treatment Not on file documented as of this encounter Procedures Procedure Name Priority Date/Time Associated Diagnosis Comments DERMATOPATHOLOGY Routine 04/23/2021 12:0 0 AM CDT documented in this encounter Results * DERMATOPATHOLOGY (04/23/2021 12:00 AM CDT) Case Report Dermatopathology Report Case: [id number] Authorizing Provider: Marcelina Ritter MD Collected: 04/23/2021 12:00 AM Ordering Location: [facility] DermPath Lab Received: 04/24/2021 11:51 AM Pathologist: [...] characteristic determined by the Dermatopathology Laboratory at [facility], directed by Dr. Briana Dutton. These tests need not be, and therefore are not, approved by the [place] Food and Drug Administration. The tests are used for clinical purposes. Billing Codes Specimen Charges Stain Charges 21002 1 1 3:46 PM CDT DERMATOPATHOLOGY LABORATORY Embedded Images 1 3:46 PM CDT DERMATOPATHOLOGY LABORATORY Pathology/Cytolog y TISSUE SPECIMEN FROM SKIN / Unknown 04/23/2021 04/24/2021 11:51 AM CDT Marcelina Ritter MD LAB - PATHOLOGY/CYTOLOGY O RDERABLES Final Result DERMATOPATHOLOGY LABORATORY [facility] - Department of Dermatology [facility] Medicine [address] [place] [address], [address] [phone] documented in this encounter Visit Diagnoses Not on filedocumented in this encounter Care Teams Fax Machine Repairer Relationship Specialty Start Date End Date Wolfgang Snyder MD [address] [place] [phone] PCP - General Pediatrics 09/01/17 documented as of this encounter
--- OUTSIDE RECORDS SUMMARY | 2025-07-16 21:07 | XMS_ITS | Clinical Summary ---
Author Organization [facility] Address [address] [place] [address] Care Team Providers Care Manager Of Supply Chain Name Role Phone Sabiha Faria MD Primary [...] on file Legal Sex Female 2:17 PM BRANCH MAKER Gender Identity Not on file Sexual Orientation Not on file Last Filed Vital Signs Vital Sign Reading Time Taken Comments Blood Pressure 130/80 09/12/2024 11:22 AM BRANCH MAKER Pulse 117 09/12/2024 11:15 AM BRANCH MAKER Temperature 37.7 C (99.8 F) 09/12/2024 11:15 AM BRANCH MAKER Respiratory Rate - - Oxygen Saturation 99% 09/12/2024 11:15 AM BRANCH MAKER Inhaled Oxygen Concentration - - Weight 59.1 kg (130 lb 6.4 oz) 09/12/2024 11:15 AM BRANCH MAKER Height 165.1 cm (5' 5) 09/12/2024 11:15 AM BRANCH MAKER Body Mass Index 21.7 09/12/2024 11:15 AM BRANCH MAKER Plan of Treatment Health Maintenance Due Date [...] B Vaccine Completed 09/24/2020, 03/24 PHQ-2 (Physician [place]) Completed 09/12/2024 Hepatitis A Vaccines Aged Out No long er eligible based on patient's age to complete this topic RSV Immunizations Under 20 Months Aged Out No longer eligible based on patient's age to complete this topic Insurance [facility] MEDICAID Care Teams Manager Of Supply Chain Relationship Specialty Start Date End Date Sabiha Faria MD [address] [place] [id number] PCP - General FAMILY PRACTICE 09/12/24
[2025-07-16 21:30] VITALS: BP 125/97; PULSE 99; RESP 17; O2SAT 100
[2025-07-16 21:48] LABS: Add Urine Microscopic? NO; Appearance Urine Clear (Clear); Glucose Urine UA Negative (Negative); Leukocyte Esterase Ur Negative LEU/UL (Negative); Nitrate Urine Negative (Negative); Specific Grav Ur 1.012 (1.001-1.035)
[2025-07-16 22:02] LABS: BEDSIDEPREGUCG Negative (Negative)
[2025-07-16 22:05] VITALS: O2SAT 98
[2025-07-16 22:06] VITALS: BP 113/77; PULSE 95; RESP 17; O2SAT 100
--- NOTE | 2025-07-16 22:58 | ECG_ITS ---
Test Date: 2025-07-16 23:00:48 Measurements Intervals [place] Rate: 90 P: 62 [place]: 136 QRS: 82 QRSD: 97 T: 39 QT: 351 QTc: 430 Interpretive Statements SINUS RHYTHM INCOMPLETE RIGHT BUNDLE BRANCH BLOCK BORDERLINE T WAVE ABNORMALITY- ANTERIOR LEADS BASELINE ARTIFACT- I, II, III, AVR, AVL, AVF BORDERLINE ECG Compared to ECG 07/16/2025 20:12:07 NO SIGNIFICANT CHANGE Electronically Signed On 07-17-2025 06:08:19 GORE SEAMER by Saleem Argueta D.O.
--- NOTE | 2025-07-16 23:04 | ED.GENADULT ---
HPI - General Adult General Chief complaint: Chest Pain Stated complaint: palpitations-hx of blood clots. Time Seen by Provider: 07/16/25 20:49 History of Present Illness HPI narrative: 20-year-old female presenting with concerns for chest pain and exertional dyspnea since Tuesday. Other concerns include URI symptoms and nausea. Patient tested positive for COVID at today. She reports history of blood clots with unknown etiology. No longer takes blood thinners. Deneis fevers/chills, nausea/vomiting, or urinary concerns. Related Data Home Medications ?Medication ?Instructions ?Recorded ?Confirmed ?Last Taken ?Type drospirenone 3 mg-ethinyl tablet 01/25/21 Unknown History estradiol 0.02 mg tablet Allergies Allergy/AdvReac Type Severity Reaction Status Date / Time No Known Allergies Allergy Verified 11/29/23 01:46 Review of Systems Review of Systems: All systems reviewed & are unremarkable except as noted in HPI and below PMFSH Past Medical History Medical History (Updated 07/16/25 @ 23:19 by PARUL Tierney) Antiphospholipid antibody positive History of pulmonary embolism at 16 years old Allergic reaction POTS (postural orthostatic tachycardia syndrome) Family History Family History Mother Kidney stone Social History Social History (Updated 10/08/23 @ 08:58 by Sarah Palmer MD) Smoking status: Former smoker Tobacco type: e-cigarettes/vaping Alcohol intake: never Substance use: never Living arrangements: with family Occupation/Education: occupation Additional occupation/education comments: works at [employer] Gender identity (if verbalized by the patient): Female Exam Narrative: GENERAL: No acute distress. HEAD: Normocephalic, atraumatic. EYES: PERRLA and EOMI. ENT: Nares clear, no rhinorrhea or epistaxis. Mucous membranes moist. Oropharynx without tonsillar hypertrophy exudate or other lesions. Bilateral TMs pearly aguilar non-bulging NECK: Supple. No adenopathy or masses. No carotid bruits or JVD CHEST: Clear to auscultation. No respiratory distress. No wheezes rales or rhonchi HEART: Mildly tachycardic. Regular rhythm. No murmur heard. Normal peripheral pulses. ABDOMEN: Soft, nontender, nondistended, normal active bowel sounds. EXTREMITIES: Normal range of motion. No edema. SKIN: Warm, dry, no rash. NEURO: No focal deficits. Alert and oriented x3. PSYCH: Normal mood and affect Course Vital Signs Vital signs: Vital Signs Pulse Rate 106 H 07/16/25 21:05 Respiratory Rate 18 07/16/25 21:05 Blood Pressure 113/81 07/16/25 21:05 Pulse Oximetry 100 07/16/25 21:05 Temperature 98.4 F 07/17/25 00:00 Pulse Rate 96 07/17/25 00:00 Respiratory Rate 19 07/17/25 00:00 Blood Pressure 134/87 07/17/25 00:00 Pulse Oximetry 100 07/17/25 00:00 Oxygen Delivery Room Air 07/16/25 22:05 [facility] Narrative Medical decision making narrative: 20-year-old female presenting with concerns for chest pain and exertional dyspnea since Tuesday. Other concerns include URI symptoms and nausea. Patient tested positive for COVID at today. She reports history of blood clots with unknown etiology. No longer takes blood thinners. Denies fevers/chills, nausea/vomiting, or urinary concerns. Upon my initial assessment patient appears nontoxic with stable vitals although some mild tachycardia at 103. Patient's EKGs and labs are without significant high risk changes. EKG w/o acute ischemic changes. Troponin negative. Cardiac risk factors reviewed. HEART score = 0. Patient is felt likely low risk for ACS and reasonable for further risk stratification testing as an outpatient. Pain was not sudden or maximal in onset without tearing or ripping quality. No other signs or symptoms to suggest aortic dissection. CTA negative for pulmonary embolism, aortic dissection, pericardial fluid or thoracic aneurysm. No pneumonia seen on evaluation today. Administered 1L NS, tachycardia resolved. Patient is felt to be a reasonable candidate for continued evaluation as an outpatient. Given reasons to return. Differential Diagnosis Differential Diagnosis: Differential diagnostic considerations for chest pain include ACS, aortic dissection, pneumothorax, pulmonary embolus, paulina/pericarditis, angina, STEMI, esophageal abnormality, GI etiology, pneumonia, rib fracture, biliary colic, atypical/non-cardiac (MSK, etc). Medical Records I have reviewed the following patient records and this information was taken into consideration when formulating the assessment and plan.: previous labs and previous ER visits Lab Data [facility] Lab Attestation statement: I personally reviewed the patient's lab results. 07/16/25 20:07 07/16/25 20:07 Labs: Lab Results 07/16/25 07/16/25 07/16/25 Range/Units 20:07 21:41 21:42 WBC 6.9 (4.5-10.0) K/mm3 RBC 4.57 (4.2-5.4) M/mm3 Hgb 13.7 (12.0-15.0) g/dL Hct 40.2 (37.0-47.0) % MCV 88.0 (80-100) fl MCH 30.0 (26-34) pg MCHC 34.1 (32-36) g/dl RDW 11.9 (11.5-14.5) % Plt Count 287 (150-375) k/mm3 MPV 8.9 (7.4-10.4) fl Immature Gran % (Auto) 0.1 (0-0.5) % Neut % (Auto) 59.2 (45.5-73.1) % Lymph % (Auto) 25.3 (18.3-44.2) % [place] % (Auto) 12.2 H (2.6-8.5) % Eos % (Auto) 2.5 (0-4.4) % Baso % (Auto) 0.7 (0.2-1.2) % Lymph # (Auto) 1.75 (0.9-3.2) K/mm3 [place] # (Auto) 0.8 H (0.1-0.6) K/mm3 Eos # (Auto) 0.2 (0-0.3) K/mm3 Baso # (Auto) 0.1 (0.0-0.1) K/mm3 Abs Immat Gran (auto) 0.01 (0.00-0.031) K/mm3 Absolute Neuts (auto) 4.1 (1.3-6.7) K/mm3 Absolute Nucleated RBC 0.000 (0.0-0.012) K/mm3 Nucleated RBC % 0.0 (0.0-0.2) % PT 13.8 (11.1-14.7) Seconds INR 1.0 APTT 30.6 (22.3-36.8) Seconds Sodium 140 (137-145) mmol/L Potassium 3.7 (3.4-5.0) mmol/L Chloride 106 (98-107) mmol/L Carbon Dioxide 23 (22-30) mmol/L Anion Gap 11 (4-12) mmol/L BUN 12 (7-17) mg/dL Creatinine 0.83 (0.7-1.0) mg/dL Estim Creat Clear Calc 81 ml/min Estimated GFR > 60 (59 - ) Glucose 108 (65-110) mg/dL Calcium 9.5 (8.4-10.2) mg/dL Total Bilirubin 0.4 (0.2-1.3) mg/dL AST 26 (14-36) U/L ALT 21 (6-35) U/L Alkaline Phosphatase 64 (38-126) U/L Troponin I < 0.012 (0.000-0.034) ng/mL Total Protein 8.4 H (6.3-8.2) g/dL Albumin 5.0 (3.5-5.1) g/dL Lipase 63 (23-300) U/L Urine Color Yellow (Yellow) Urine Appearance Clear (Clear) Urine pH 5.0 (5.0-9.0) Ur Specific [place] 1.012 (1.001-1.035) Urine Protein Negative (Negative) mg/dL Urine Glucose (UA) Negative (Negative) mg/dL Urine Ketones Negative (Negative) mg/dL Ur Blood (Man) Negative (Negative) Urine Nitrate Negative (Negative) Urine Bilirubin Negative (Negative) Urine Urobilinogen 0.2 (<2.0) mg/dL Leukocyte Esterase Rfl Negative (Negative) JORDIN/UL POC Urine HCG, Qual Negative (Negative) 07/16/25 Range/Units 23:04 WBC (4.5-10.0) K/mm3 RBC (4.2-5.4) M/mm3 Hgb (12.0-15.0) g/dL Hct (37.0-47.0) % MCV (80-100) fl MCH (26-34) pg MCHC (32-36) g/dl RDW (11.5-14.5) % Plt Count (150-375) k/mm3 MPV (7.4-10.4) fl Immature Gran % (Auto) (0-0.5) % Neut % (Auto) (45.5-73.1) % Lymph % (Auto) (18.3-44.2) % [place] % (Auto) (2.6-8.5) % Eos % (Auto) (0-4.4) % Baso % (Auto) (0.2-1.2) % Lymph # (Auto) (0.9-3.2) K/mm3 [place] # (Auto) (0.1-0.6) K/mm3 Eos # (Auto) (0-0.3) K/mm3 Baso # (Auto) (0.0-0.1) K/mm3 Abs Immat Gran (auto) (0.00-0.031) K/mm3 Absolute Neuts (auto) (1.3-6.7) K/mm3 Absolute Nucleated RBC (0.0-0.012) K/mm3 Nucleated RBC % (0.0-0.2) % PT (11.1-14.7) Seconds INR APTT (22.3-36.8) Seconds Sodium (137-145) mmol/L Potassium (3.4-5.0) mmol/L Chloride (98-107) mmol/L Carbon Dioxide (22-30) mmol/L Anion Gap (4-12) mmol/L BUN (7-17) mg/dL Creatinine (0.7-1.0) mg/dL Estim Creat Clear Calc ml/min Estimated GFR (59 - ) Glucose (65-110) mg/dL Calcium (8.4-10.2) mg/dL Total Bilirubin (0.2-1.3) mg/dL AST (14-36) U/L ALT (6-35) U/L Alkaline Phosphatase (38-126) U/L Troponin I < 0.012 (0.000-0.034) ng/mL Total Protein (6.3-8.2) g/dL Albumin (3.5-5.1) g/dL Lipase (23-300) U/L Urine Color (Yellow) Urine Appearance (Clear) Urine pH (5.0-9.0) Ur Specific [place] (1.001-1.035) Urine Protein (Negative) mg/dL Urine Glucose (UA) (Negative) mg/dL Urine Ketones (Negative) mg/dL Ur Blood (Man) (Negative) Urine Nitrate (Negative) Urine Bilirubin (Negative) Urine Urobilinogen (<2.0) mg/dL Leukocyte Esterase Rfl (Negative) JORDIN/UL POC Urine HCG, Qual (Negative) Imaging Data Attestation: I personally reviewed and interpreted this imaging study as follows: Radiologist's impression: ITS Impressions Chest X-Ray 07/16/25 20:28 IMPRESSION: No acute lung findings.] [ ] Chest CTA 07/16/25 21:59 IMPRESSION: There is no pulmonary embolism, aortic dissection, pericardial fluid or thoracic aneurysm. No acute lung findings. All CT scans at this facility are performed using low dose modulation techniques as appropriate to perform exam including the following: automated exposure control; use of iterative reconstruction technique; adjustment of the mA and/or kV according to patient size (this includes techniques or standardized protocols for targeted exams where dose is matched to indication/reason for exam). ECG Data EKG #1: ECG completion date: 07/16/25 ECG completion time: 20:12 normal rate, sinus rhythm and no acute changes EKG #2: ECG completion date: 07/16/25 ECG completion time: 23:00 normal rate, sinus rhythm and no acute changes Discharge Plan Discharge Clinical Impression: Chest pain, COVID-19 Patient Disposition: Home Condition: Stable Instructions: Chest Pain (ED), COVID-19 (Coronavirus Disease 2019) (ED) Additional Instructions: Patient has been advised to remain well-hydrated, get plenty of rest, no work or school for several days. Take Tylenol or Motrin [id number] for pain as needed. Return to the Emergency Department if you experience fever, chest pain, shortness of breath, or any other symptoms that are concerning to you. Follow-up with your primary care provider. Patient Language: Citizen Of [place] Prescriptions: No Action acetaminophen 650 mg tablet extended release 650 mg PO Q8H PRN (Reason: pain) Qty: 20 0RF ibuprofen 600 mg tablet 600 mg PO TID PRN (Reason: pain) Qty: 20 0RF drospirenone-ethinyl estradiol 3-0.02 mg tablet ofloxacin 0.3 % drops 10 drp RIGHT EAR DAILY 7 Days Qty: 10 0RF Follow-up/Referrals: UNKNOWN,DOCTOR [Primary Care Provider] Quality HEART score for chest pain patients History: slightly suspicious ECG: normal Age: < or = to 45 years Risk factors: no risk factors known Troponin: < or = to 1x normal limit Heart score: 0
[2025-07-16] MEDS: SODIUM CHLORIDE 0.9% IV 1,000 ML 999 ML IV CONT (23:10)
[2025-07-16 23:13] VITALS: BP 103/77; PULSE 93; RESP 16; O2SAT 100
[2025-07-16 23:32] LABS: Troponin I < 0.012 ng/mL (0.000-0.034)
[2025-07-17] VITALS: BP 134/87; PULSE 96; RESP 19; TEMP 36.9; O2SAT 100
== END 2025-07-17 00:17 | disposition home or self-care (01) ==
PROVIDERS: Student in an Organized Health Care Education/Training Program
DX: U07.1 COVID-19 (principal); R07.9 Chest pain, unspecified; G90.A Postural orthostatic tachycardia syndrome [POTS]; Z86.711 Personal history of pulmonary embolism; Z87.891 Personal history of nicotine dependence; I45.10 Unspecified right bundle-branch block; R94.31 Abnormal electrocardiogram [ECG] [EKG]
CPT/HCPCS: 36415; 71046; 71275; 80053; 81003; 81025; 83690; 84484; 85025; 85610; 85730; 93005; 96360; 99284; J7030; Q9967